=== PATIENT | male | born 1940 | race Caucasian/White ===

== ENCOUNTER 2018-09-24 07:25 | Day surgery (SDC) | payer MEDICARE, OTHER ==
--- NOTE | 2018-09-18 13:38 | GHP ---
DATE OF ADMISSION: 09/24/2018 HISTORY OF PRESENT ILLNESS: The patient is a 78-year-old male with Parkinson disease. He underwent bilateral STN and deep brain stimulation implant in 2012 and then had a revision with bilateral GPi i mplant in 2013. He follows with Dr. Hernández for his neurologist. He is here today to proceed with r eplacement of his left internal pulse generator as the battery status is at end of life. PAST MEDICAL HISTORY: Parkinson's, peripheral neuropathy, arthritis, scoliosis. PAST SURGICAL HISTORY: Deep brain stimulation surgery. FAMILY HISTORY: No pertinent neurosurgical family history. SOCIAL HISTORY: Denies tobacco use. He is . ALLERGIES: No known drug allergies. CURRENT HOME MEDICATIONS: Wellbutrin and Sinemet. REVIEW OF SYSTEMS: Negative except for what is mentioned in the HPI. PHYSICAL EXAM: Patient seen and examined and appears in no apparent distress. Mood and affect are a ppropriate. Alert and oriented. Pupils equal and reactive. Extraocular movements are intact. Facia l expression is symmetrical. Speech is fluent. Following commands, moving all extremities. Strengt h is full at a 5/5. ASSESSMENT AND PLAN: In summary, the patient is a 78-year-old male with Parkinson disease. He had i nitial placement of DBS in 2012 with a revision in 2013. His left internal pulse generator was inter rogated and his battery status is nearing end of life and is at 2.63. We recommend proceeding with r eplacement. The risks, benefits, and procedure were discussed in great detail. The patient has elec cornell to move forward and has signed consent for replacement of left deep brain stimulator internal pul se generator. /[id number]/MODL
[2018-09-24] MEDS ORDERED: ACETAMINOPHEN 500 MG TAB PO ONE (07:36)
[2018-09-24] MEDS ORDERED: ceFAZolin 2 GM/DEXTROSE 100 ML IV ONE (07:36)
[2018-09-24] MEDS ORDERED: LIDOCAINE 1% 2 ML INJ ID PRN (07:37)
[2018-09-24] MEDS ORDERED: LR 1,000 ML IV ONE (07:37)
[2018-09-24] MEDS ORDERED: CHLORHEXIDINE GLUC HIBICLENS 118 ML BTL TP ONE (08:04)
[2018-09-24] MEDS ORDERED: EPINEPHrine 1 MG/ML INJ ONE (08:04)
[2018-09-24] MEDS ORDERED: BACITRACIN ZINC 0.5 OZ OINTTUBE TP ONE (08:04)
[2018-09-24] MEDS ORDERED: BUPIVACAINE 0.25% 30 ML SDV ONE (08:04)
[2018-09-24] MEDS ORDERED: GENTAMICIN SULFATE 80 MG/2 ML VIAL ONE (08:05)
--- NOTE | 2018-09-24 08:52 | PDANEPAE ---
ANE History of Present Illness here for DBS battery change ANE Past Medical History - Cardiovascular History Hx Hypertension: No Hx Arrhythmias: No Hx Chest Pain: No Hx Coronary Artery / Peripheral Vascular Disease: No Hx CHF / Valvular Disease: No Hx Palpitations: No - Pulmonary History Hx COPD: No Hx Asthma/Reactive Airway Disease: No Hx Recent Upper Respiratory Infection: No Hx Oxygen in Use at Home: No Hx Sleep Apnea: No Sleep Apnea Screening Result - Last Documented: Positive - Neurologic History Hx Cerebrovascular Accident: No Hx Seizures: No Hx Dementia: No - Endocrine History Hx Diabetes: No - Renal History Hx Renal Disorders: No - Liver History Hx Hepatic Disorders: No - Neurological & Psychiatric Hx Hx Neurological and Psychiatric Disorders: Yes Neurological / Psychiatric History Comment: tremor,parkinsons - Cancer History Hx Cancer: No - Congenital Disorder History Hx Congenital Disorders: No - GI History Hx Gastrointestinal Disorders: No - Other Health History Other Health History: none - Chronic Pain History Chronic Pain: Yes (lower back) - Surgical History Prior Surgeries: none in 5 yrs. cholecystectomy ANE Review of Systems Review of systems is: negative Review of Systems: - Exercise capacity METS (RN): 4 METS ANE Patient History - Allergies Allergies/Adverse Reactions: No Known Allergies Allergy (Verified 09/16/18 08:56) - Home Medications Home medications: home medication list seen and reviewed Home Medications: Sinemet 25/100 MG (*) 09/16/18 [Last Taken 09/24/18 06:30] Azilect 09/24/18 [Last Taken 09/24/18 06:30] - NPO status NPO Status: no food or drink >8 hours NPO Since - Liquids (Date): 09/23/18 NPO Since - Liquids (Time): 23:00 NPO Since - Solids (Date): 09/23/18 NPO Since - Solids (Time): 23:00 - Anes Hx Anes Hx: no prior problems - Smoking Hx Smoking Status: Never smoked - Family Anes Hx Family Hx Anesthesia Complications: none ANE Labs/Vital Signs - Vital Signs Blood Pressure: 137/84 Heart Rate: 85 Respiratory Rate: 16 O2 Sat (%): 92 Height: 182.88 cm Weight: 79.379 kg ANE Physical Exam - Airway Neck exam: FROM Mallampati Score: Class 1 - Pulmonary Pulmonary: no respiratory distress - Cardiovascular Cardiovascular: regular rate and rhythym - ASA Status ASA Status: II ANE Anesthesia Plan Anesthesia Plan: MAC
[2018-09-24] MEDS ORDERED: PROPOFOL/EMULSION 500 MG/50 ML BOTTLE IV ONE (09:18)
--- NOTE | 2018-09-24 09:20 | PDHPUP ---
History & Physical Update H&P update statement: This history and physical update is based on an assessment of the patient which was completed after admission or registration (within 24 hours), but prior to the surgery/procedure. H&P update: H&P reviewed & patient examined, no change in patient's condition since H&P completed
[2018-09-24] MEDS ORDERED: ONDANSETRON DISINTEGRATING 4 MG TAB PO PRN (09:29)
[2018-09-24] MEDS ORDERED: HYDROCODONE/APAP 5/325 TAB PO PRN (09:29)
[2018-09-24] MEDS ORDERED: fentaNYL 100 MCG/2 ML INJ ONE (09:34)
[2018-09-24] MEDS ORDERED: ONDANSETRON 4 MG/2 ML VIAL IVP PRN (09:59)
[2018-09-24] MEDS ORDERED: NALOXONE HCL 0.4 MG/ML INJ IVP PRN (09:59)
[2018-09-24] MEDS ORDERED: fentaNYL 100 MCG/2 ML INJ IVP PRN (09:59)
[2018-09-24] MEDS ORDERED: LR 500 ML IV PRN (09:59)
[2018-09-24] MEDS ORDERED: ALBUTEROL 3 ML DEYVIAL IH PRN (09:59)
[2018-09-24] MEDS ORDERED: DEXAMETHASONE 4 MG/ML VIAL IVP PRN (09:59)
--- NOTE | 2018-09-24 10:58 | POSTOPPROG ---
Post Op Note Date of Operation: 09/24/18 Surgeon: Sanjuanita Tam Director [employer]: Janette Julio PA-C Anesthesiologist: Dr. Candelaria Anesthesia: IV Sedation, Local (Specify) Pre-op Diagnosis: Parkinson's Post-op Diagnosis: Parkinson's Procedure: replacement of left DBS generator Inf/Abcess present in the surg proc area at time of surgery?: No Depth: Superfical (Skin SQ) EBL: Minimal Plan Plan: 78 yo male s/p replacement of left DBS generator - pain control - advance diet as tolerated - dc home today Exam Awake. Alert Following commands, CABRALES Incision with dressing c/d/i
[2018-09-24] MEDS ORDERED: HYDROCODONE/APAP 5/325 TAB ONE (11:01)
--- NOTE | 2018-09-24 11:30 | POSTANESTH ---
Post Anesthetic Evaluation Cardiovascular Status: Normal, Stable Respiratory Status: Normal, Stable Level of Consciousness/Mental Status: Can Participate in Eval Pain Control: Adequate, Prn Tx Ordered Nausea/Vomiting Control: Adequate, Prn Tx Ordered Complications Possibly Related to Anesthesia: None Noted
[2018-09-24 12:03] VITALS: BP 121/67
== END 2018-09-24 12:03 | disposition home or self-care (01) ==
LOC: FSGY 07:25
PROVIDERS: ATTEND Neurological Surgery
DX: Z45.49 Encounter for adjustment and management of other implanted nervous system device (principal); G20 Parkinson's disease
CPT/HCPCS: C1767; C1787; J0171; J0690; J1580; J2704; J3010